=== PATIENT | male | born 1985 | race Caucasian/White ===

== ENCOUNTER 2021-12-24 11:13 | Outpatient (CLI) | payer BC, SELFPAY ==
[2021-12-24 14:21] LABS: Albumin* 4.9 g/dL (3.3-5.0); Chloride* 103 mmol/L (96-114); Potassium* 4.6 mmol/L (3.6-5.1); Sodium* 138 mmol/L (135-149)
[2021-12-24 14:23] LABS: Cholesterol* 202 mg/dL (90-199)
[2021-12-24 14:24] LABS: Alanine Aminotransferase* 35 U/L (4-50); Alkaline Phosphatase* 92 U/L (40-150); Aspartate Amino Transferase* 32 U/L (12-35); Blood Urea Nitrogen* 17 mg/dL (5-24); Calcium* 9.5 mg/dL (8.4-10.6); Carbon Dioxide* 27 mmol/L (20-32); Creatinine* 1.2 mg/dL (0.5-1.5); Estimated Glomerular Filt Rate 79 ml/min; Glucose* 88 mg/dL (60-115); Total Protein* 7.7 g/dL (6.0-8.3); Triglycerides* 123 mg/dL (40-149)
[2021-12-24 14:25] LABS: HDL Cholesterol* 48 mg/dL (>=40); LDL Cholesterol Calculated 129 mg/dL (<100)
== END 2021-12-24 11:14 | disposition home or self-care (01) ==
PROVIDERS: PCP Emergency Medicine; Visit Provider Emergency Medicine
DX: E78.00 Pure hypercholesterolemia, unspecified (principal); R74.8 Abnormal levels of other serum enzymes
CPT/HCPCS: 80053; 80061

== ENCOUNTER 2022-07-07 08:11 | Outpatient (CLI) | payer BC, SELFPAY | END 2022-07-07 08:12 | disposition home or self-care (01) | PROVIDERS: PCP Emergency Medicine; Visit Provider Emergency Medicine | DX: R74.01 Elevation of levels of liver transaminase levels (principal); E78.5 Hyperlipidemia, unspecified; I10 Essential (primary) hypertension | CPT/HCPCS: 80048; 80061 ==

== ENCOUNTER 2023-06-15 08:48 | Outpatient (CLI) | payer BC, SELFPAY | END 2023-06-15 08:49 | disposition home or self-care (01) | PROVIDERS: PCP Emergency Medicine; Visit Provider Emergency Medicine | DX: Z00.00 Encounter for general adult medical examination without abnormal findings (principal); I10 Essential (primary) hypertension; E78.5 Hyperlipidemia, unspecified; R74.01 Elevation of levels of liver transaminase levels | CPT/HCPCS: 80053; 80061 ==

== ENCOUNTER 2024-10-03 08:56 | Outpatient (CLI) | payer BC, SELFPAY | END 2024-10-03 08:57 | disposition home or self-care (01) | LOC: LKVREF 08:57 | PROVIDERS: PCP Emergency Medicine; Visit Provider Emergency Medicine | DX: E78.2 Mixed hyperlipidemia (principal); I10 Essential (primary) hypertension | CPT/HCPCS: 80048; 80061; 80076 ==

== ENCOUNTER 2024-11-19 07:54 | Outpatient (CLI) | payer BC, SELFPAY ==
--- NOTE | 2024-11-19 08:15 | CRLHL7_ITS ---
For Patients: As a result of the Cures Act, medical imaging exams and procedure reports are released immediately into your electronic medical record. You may view this report before your referring provider. If you have questions, please contact your health care provider. Indication: Lump, localized edema Technique: Grayscale and color Doppler ultrasound of the right posteromedial thigh soft tissues performed. Comparison: None Findings: There is an isoechoic nonvascular mass within the subcutaneous tissues which measures 6.0 x 2.5 x 5.1 cm. No abnormal vascularity. No fluid collection or shadowing component. Impression: Subcutaneous lipoma within the upper left posteromedial thigh soft tissues which measures 6.0 x 2.5 x 5.1 cm. No abscess. Dictated by Theodore Bee MD @ 11/19/2024 11:40:33 AM (Electronically Signed)
== END 2024-11-19 07:55 | disposition home or self-care (01) ==
LOC: US 07:55
PROVIDERS: Visit Provider Emergency Medicine
DX: R60.0 Localized edema (principal); D17.24 Benign lipomatous neoplasm of skin and subcutaneous tissue of left leg
CPT/HCPCS: 76882